=== PATIENT | male | born 1955 | race Caucasian/White ===

== ENCOUNTER 2018-06-07 15:49 | Inpatient (IN) | payer MEDICAID ==
[~2018-06-07] VITALS: Ht 167.6 cm; Wt 53.1 kg
[2018-06-07 15:51] VITALS: BP 142/75
--- NOTE | 2018-06-07 16:05 | NUR ---
PATIENT PRESENTS TO ED WITH PT ADMITS HE WAS DIAGNOSED LAST YR WITH MENINGITIS TODAYS SYMPTOMS ARE SIMILAR TO HIS FROM LAST YEAR ---PHOTOPHOBIA, FRONTAL LOBE SEVERE HEADACHE---- DENIES N/VD, DENIES RECENT INJURY, PAIN TO BASE OF HEAD IF HEAD TILT BACK MD NOTIFIED---MASK REMAINS ON PT SKIN IS PINK/WARM/DRY; AAOX4 WITH EVEN AND STEADY GAIT; LUNGS CLEAR BL; HR EVEN AND REGULAR; PT DENIES ANY FEVER, CP, SOB, OR COUGH AT THIS TIME; PATIENT STATES PAIN OF 10/10 AT THIS TIME; VSS; PATIENT POSITIONED FOR COMFORT; HOB ELEVATED; BEDRAILS UP X2; BED DOWN. ER MD MADE AWARE OF PT STATUS.
[2018-06-07] MEDS ORDERED: KETOROLAC 30 MG/ML VIAL IVP ONE (16:10)
[2018-06-07] MEDS ORDERED: LORazepam 2 MG/ML VIAL IVP ONE (16:10)
[2018-06-07] MEDS ORDERED: LIDOCAINE/EPI 1% 1:100000 20 ML VIAL INJ ONE (16:10)
[2018-06-07] MEDS ORDERED: NACL 0.9% 1,000 ML IV ONE (16:10)
--- NOTE | 2018-06-07 16:15 | NUR ---
EILEEN SET UP BY KYLE RTAORE
[2018-06-07 16:38] LABS: BASOPHILS % (AUTO) 0.6 % (0.0-2.0); HEMATOCRIT 45.1 % (36-52); HEMOGLOBIN 15.4 g/dL (12.0-18.0); LYMPHOCYTES # (AUTO) 0.4 K/uL (2.0-11.5); MEAN CORPUSCULAR HEMOGLOBIN 30 pg (27-31); MEAN CORPUSCULAR HGB CONC 34 g/dL (33-37); MEAN CORPUSCULAR VOLUME 87.5 fL (80-94); MONOCYTES # (AUTO) 0.3 K/uL (0.8-1.0); MONOCYTES % (AUTO) 6.3 % (1.7-9.3); NEUTROPHILS # (AUTO) 3.3 K/uL (1.8-7.7); NEUTROPHILS % (AUTO) 83.1 % (42.2-75.2); PLATELET COUNT (AUTO) 206 K/uL (140-450); RED BLOOD CELL COUNT(AUTO) 5.15 MIL/uL (4.20-6.10); RED CELL DISTRIBUTION WIDTH 13.6 % (11.6-13.7)
--- NOTE | 2018-06-07 16:42 | NUR ---
pt taken to xray
--- NOTE | 2018-06-07 16:42 | NUR ---
epi left at bedside for
--- NOTE | 2018-06-07 16:51 | NUR ---
PT RETURNED FROM X RAY
[2018-06-07 17:01] LABS: APPEARANCE,URINE CLEAR (CLEAR); BILIRUBIN,URINE NEGATIVE (NEGATIVE); BLOOD, URINE TRACE-I (NEGATIVE); COLOR,URINE YELLOW (YELLOW); LEUKOCYTE ESTERASE ,URINE NEGATIVE (NEGATIVE); NITRITE, URINE NEGATIVE (NEGATIVE); UGLUCOSE 3+ (NEGATIVE)
[2018-06-07 17:05] LABS: ALBUMIN 3.6 g/dL (3.4-5.0); ANION GAP 11.2 (8-16); CARBON DIOXIDE 27.8 mmol/L (21-32); TOTAL BILIRUBIN 0.5 mg/dL (0.0-1.0)
--- NOTE | 2018-06-07 17:30 | NUR ---
Dr. Miranda, Dr. Lennon and RN at bedside for lumbar puncture.
[2018-06-07 17:38] LABS: BARBITURATE, URINE NEG. ng/ml (NEG <=200); BENZODIAZEPINE, URINE NEG. ng/mL (NEG <=200); CANNABINOID, URINE NEG. ng/mL (NEG <=50); COCAINE, URINE NEG. ng/mL (NEG <=300); OPIATE, URINE NEG. ng/mL (NEG <=2000); PHENCYCLIDINE SCREEN,URINE NEG. ng/mL (NEG <=25)
[2018-06-07 17:44] LABS: PROTHROMBIN TIME 10.1 secs (10.8-13.4)
--- NOTE | 2018-06-07 18:51 | NUR ---
AMARILIS [phone] FOR PT RIDE
--- NOTE | 2018-06-07 18:51 | NUR ---
PT SLEEPING IN BED, VSS AT THIS TIME
[2018-06-07 18:57] LABS: CSF GLUCOSE 117 mg/dL (40-70)
[2018-06-07 19:09] LABS: CSF PROTEIN 73.1 mg/dL (15-45)
[2018-06-07] MEDS ORDERED: VANCOMYCIN 1,000 MG in DEXTROSE 5% 250 ML IV ONE (19:15)
--- NOTE | 2018-06-07 19:17 | NUR ---
CSF CULTURE AND GRAM STAIN SENT TO [facility]
--- NOTE | 2018-06-07 19:18 | NUR ---
CSF CULTURE AND GRAM STAIN SENT TO [facility]
--- NOTE | 2018-06-07 19:18 | NUR ---
REPORT GIVEN TO HAL FOLEY
[2018-06-07] MEDS ORDERED: HYDROcodone/APAP 5/325 MG 1 TAB TAB PO PRN (19:20)
[2018-06-07] MEDS ORDERED: LORazepam 2 MG/ML VIAL IM/IVP PRN (19:20)
[2018-06-07] MEDS ORDERED: ACETAMINOPHEN 325 MG TAB PO PRN (19:20)
[2018-06-07] MEDS ORDERED: DOCUSATE SODIUM 100 MG GELCAP PO PRN (19:20)
[2018-06-07] MEDS ORDERED: ONDANSETRON 4 MG/2 ML VIAL IM/IVP PRN (19:20)
[2018-06-07] MEDS ORDERED: ZOLPIDEM 5 MG TAB PO PRN (19:20)
[2018-06-07] MEDS ORDERED: cefTRIAXone 1,000 MG VIAL ONE (19:31)
[2018-06-07 20:04] LABS: CHOL/HDL RATIO 2.1 (1-4.5); FREE T4 (FREE THYROXINE) 1.08 ng/dL (0.76-1.46); MAGNESIUM 1.9 mg/dL (1.8-2.4); PHOSPHORUS 2.6 mg/dL (2.5-4.9); THYROID STIMULATING HORMONE 0.29 uIU/mL (0.34-3.74)
[2018-06-07] MEDS ORDERED: VANCOMYCIN 1,000 MG VIAL ONE (20:04)
--- NOTE | 2018-06-07 20:10 | NUR ---
PT ARRIVED AT UNIT VIA GURNEY, PT ABLE TO AMBULATE TO BED, TOLERATED WELL, NO DISTRESS NOTED, REPORT RECEIVED FROM ED NURSE MARQUEZ RN, PT STABLE, IV TO R AC 20G PATENT, INTACT, INFUSING ROCEPHIN AT THIS MOMENT @ 100ML/HR, PT ON ROOM AIR, NO SOB, V/S TAKEN, WNL, MRSA SWAB TAKEN, CALL LIGHT WITHIN REACH, WILL CONTINUE TO MONITOR.
--- NOTE | 2018-06-07 20:10 | NUR ---
Patient will be admitted to care of Dr. Rebollar. Admited to Tele. Patient went to room 113, via gurney by RN and Walter, EMT. Belongings list completed. Report to OG Reyes; Rochepin still infusing at time of transfer, RN aware Vancomycin ED order is still pending and is to be administered after Rocehpin is complete.
[2018-06-07 21:00] VITALS: BP 136/81
[2018-06-07] MEDS: NACL 0.9% 1,000 ML IV SCH (21:00)
[2018-06-07] MEDS: MORPHINE SULFATE 4 MG/ML SYR IVP PRN (21:01)
--- NOTE | 2018-06-07 21:01 | NUR ---
PT C/O PAIN, HEADACHE, AND PAIN TO THE FOOT, PAIN MEDICATION ADMINISTERED, PT TOLERATED WELL, ATTEMPT TO ASK ADMISSION QUESTIONS, PT WOULD NOT ANSWER. PT SLEEPING, NO DISTRESS NOTED, CALL LIGHT WITHIN REACH, WILL CONTINUE TO MONITOR.
--- NOTE | 2018-06-07 21:10 | NUR ---
PT IV INFILTRATED, NEW IV INSERTED TO L WRIST 20G PATENT, INTACT, PT TOLERATED WELL, IV TO L AC 20G TAKEN OUT, CATH INTACT.
--- NOTE | 2018-06-07 21:45 | NUR ---
CALLED DAUGHTER AT [phone] WENT DIRECTLY TO VOICEMIIL.
[2018-06-08] VITALS (7 sets, daily range): BP systolic 96–135; BP diastolic 53–70
--- NOTE | 2018-06-08 00:10 | NUR ---
CHECKED ON PT, PT SLEEPING, V/S TAKEN, WITHIN PT BASELINE, CALL LIGHT WITHIN REACH, WILL CONTINUE TO MONITOR.
[2018-06-08] MEDS ORDERED: DEXTROSE 50% 50 ML SYR IVP PRN (01:05)
[2018-06-08] MEDS ORDERED: BISACODYL 5 MG TABEC PO PRN (01:05)
[2018-06-08] MEDS ORDERED: VANCOMYCIN PER PHARMACY MC PRN (01:15)
[2018-06-08] MEDS: methylPREDNISolone SS 125 MG/2 ML VIAL IVP SCH (02:54)
[2018-06-08] MEDS: MORPHINE SULFATE 4 MG/ML SYR IVP PRN ×2 (02:58→08:30)
--- NOTE | 2018-06-08 02:58 | NUR ---
DUE MEDICATION ADMINISTERED, PT TOLERATED WELL, NO DISTRESS NOTED, CALL LIGHT WITHIN REACH, WILL CONTINUE TO MONITOR.
--- NOTE | 2018-06-08 03:53 | NUR ---
CHECKED ON PT, PT SLEEPING, NO DISTRESS NOTED, V/S TAKEN, WNL, CALL LIGHT WITHIN REACH, WILL CONTINUE TO MONITOR.
[2018-06-08] MEDS: INSULIN LISPRO SLIDING SCALE 100 UNITS/ML VIAL SUBQ PRN ×4 (06:12→22:03)
[2018-06-08] MEDS: BLOOD GLUCOSE MONITORING 1 DEV DEV FS SCH ×4 (06:12→21:00)
--- NOTE | 2018-06-08 07:27 | NUR ---
ENDORSED PT TO DAY SHIFT NURSE PAVAN RN, PT STABLE, NO DISTRESS NOTED, CALL LIGHT WITHIN REACH.
--- NOTE | 2018-06-08 07:45 | NUR ---
PATIENT WAS DROWSY, ABLE TO ANSWER QUESTIONS. RESPIRATION EVEN, UNLABOR ON ROOM AIR. SKIN DRY AND WARM. IV PATENT AND INTACT. COMPLAINED OF HEADACHE 8/, WILL MEDICATE PER ORDER. PLAN OF CARE WAS DISCUSSED WITH PATIENT. BED AT LOW POSITION, SIDE RAILS UP. CALL LIGHT WITHIN REACH
[2018-06-08] MEDS: NACL 0.9% 1,000 ML IV SCH ×2 (07:50→14:02)
[2018-06-08 07:56] LABS: BASOPHILS % (AUTO) 0.4 % (0.0-2.0); HEMATOCRIT 42.9 % (36-52); HEMOGLOBIN 14.7 g/dL (12.0-18.0); LYMPHOCYTES # (AUTO) 0.3 K/uL (2.0-11.5); LYMPHOCYTES % (AUTO) 6.6 % (20.5-51.1); MEAN CORPUSCULAR HEMOGLOBIN 30 pg (27-31); MEAN CORPUSCULAR HGB CONC 34 g/dL (33-37); MEAN CORPUSCULAR VOLUME 87.1 fL (80-94); MONOCYTES # (AUTO) 0.1 K/uL (0.8-1.0); MONOCYTES % (AUTO) 2.3 % (1.7-9.3); NEUTROPHILS # (AUTO) 3.7 K/uL (1.8-7.7); NEUTROPHILS % (AUTO) 90.7 % (42.2-75.2); PLATELET COUNT (AUTO) 186 K/uL (140-450); RED BLOOD CELL COUNT(AUTO) 4.93 MIL/uL (4.20-6.10); RED CELL DISTRIBUTION WIDTH 13.6 % (11.6-13.7); WHITE BLOOD COUNT (AUTO) 4.1 K/uL (4.8-10.8)
[2018-06-08] MEDS: LACTOBACILLUS RHAMNOSUS GG 1 EACH CAP PO SCH (08:30)
[2018-06-08] MEDS ORDERED: MORPHINE SULFATE 4 MG/ML SYR IVP PRN (08:40)
--- NOTE | 2018-06-08 08:40 | NUR ---
PATIENT HAS BEEN SCREENED AND CATEGORIZED MODERATE NUTRITION RISK. PATIENT WILL BE SEEN WITHIN 3-5 DAYS OF ADMISSION. 06/10/18KATHERINE [address]
[2018-06-08 08:41] LABS: PHOSPHORUS 2.7 mg/dL (2.5-4.9)
[2018-06-08 08:42] LABS: CARBON DIOXIDE 22.7 mmol/L (21-32); CREATININE 0.9 mg/dL (0.7-1.3); POTASSIUM 3.7 mmol/L (3.5-5.1)
[2018-06-08] MEDS ORDERED: VANCOMYCIN 1GM/DEXT 5% PREMIX 200 ML IV SCH (09:00)
[2018-06-08] MEDS ORDERED: APAP/BUTAL/CAFF 325/50/40 MG 1 TAB PO PRN (09:20)
--- NOTE | 2018-06-08 09:25 | NUR ---
PATIENT WAS DROWSY, COMPLAINED OF DIZZINESS AND CHEST PAIN. VS AND BS WAS TAKEN, STABLE AT THIS TIME. DR. ALBRECHT WAS AT BEDSIDE. PATIENT WAS ABLE TO BE AROUSED WITH SHAKING. WILL CONTINUE TO MONITOR
[2018-06-08] MEDS ORDERED: NITROGLYCERIN 0.4 MG TAB SL PRN (09:35)
--- NOTE | 2018-06-08 11:30 | NUR ---
PATIENT WAS SLEEPING COMFORTABLY. RESPIRATION EVEN, UNLABOR ON ROOM AIR. NO DISTRESS NOTED AT THIS TIME
[2018-06-08] MEDS: ACYCLOVIR IV SCH ×2 (12:08→22:04)
[2018-06-08] MEDS: NACL 0.9% IV SCH ×2 (12:08→22:04)
--- NOTE | 2018-06-08 13:49 | NUR ---
PATIENT WAS SLEEPING COMFORTABLY. RESPIRATION EVEN, UNLABOR ON ROOM AIR. NO DISTRESS NOTED AT THIS TIME
--- NOTE | 2018-06-08 16:00 | NUR ---
PATIENT WAS SLEEPING COMFORTABLY, EASILY AROUSABLE BY NAME. RESPIRATION EVEN, UNLABOR ON ROOM AIR. SKIN DRY AND WARM. DENIED PAIN. NO DISTRESS NOTED AT THIS TIME.
[2018-06-08] MEDS: metFORMIN 500 MG TAB PO SCH (17:20)
[2018-06-08] MEDS: KETOROLAC 30 MG/ML VIAL IVP PRN (17:20)
[2018-06-08] MEDS: PSYLLIUM 12.2 GM/PKT PO SCH (17:22)
--- NOTE | 2018-06-08 17:51 | NUR ---
PATIENT COMPLAINED OF SEVERE HEADACHE 11/26. MEDS WERE GIVEN PER ORDER
--- NOTE | 2018-06-08 18:46 | NUR ---
PATIENT WAS AWAKE, ALERT. RESPIRATION EVEN, UNLABOR ON ROOM AIR. IV PATENT AND INTACT. NO DISTRESS NOTED AT THIS TIME
--- NOTE | 2018-06-08 19:10 | NUR ---
RECEIVED REPORT FROM DAY SHIFT NURSE. PT SLEEPING. NO S/S OF RESP DISTRESS. NO S/S OF PAIN. ON ROOM AIR. SKIN INTACT. IV TO LEFT WRIST #20G, NS AT 70 ML/HR INFUSING WELL. SAFETY PRECAUTION IN PLACE. CALL LIGHT WITHIN REACH.
--- NOTE | 2018-06-08 19:23 | NUR ---
REPORT WAS GIVEN TO RESEARCH DIRECTOR RN. PATIENT WAS STABLE AT THIS TIME
--- NOTE | 2018-06-08 20:30 | NUR ---
Sagger Filler Notes: I attempted to met with Patient for a screen, patient was sleep and will not wake up or answer any question from these staff writer. I attempted to call Patient's Daughter Ana Maria Banks at . No response; unable to leave a [facility] due to full voicemail.
[2018-06-08] MEDS ORDERED: ATORVASTATIN 20 MG TAB PO SCH (21:00)
--- NOTE | 2018-06-08 21:30 | NUR ---
DR. ALEJANDRO CAME IN TO SEE PT. DENIES PAIN OR SOB AT THIS TIME.
[2018-06-09] VITALS: BP 120/63
--- NOTE | 2018-06-09 | NUR ---
PT SLEEPING BUT EASILY AROUSABLE. CHECKED V/S, WNL. NO S/S OF PAIN OR SOB.
[2018-06-09] MEDS: methylPREDNISolone SS 125 MG/2 ML VIAL IVP SCH (02:01)
--- NOTE | 2018-06-09 02:01 | NUR ---
DUE MEDS GIVEN. PT TOLERATED WELL.
[2018-06-09 04:00] VITALS: BP 116/59
--- NOTE | 2018-06-09 04:30 | NUR ---
PT SLEEPING. RESP EVEN AND UNLABORED. NO S/S OF PAIN. IVF INFUSING WELL.
[2018-06-09] MEDS: NACL 0.9% 1,000 ML IV SCH ×2 (04:51→20:46)
[2018-06-09] MEDS: NACL 0.9% IV SCH ×3 (05:03→20:46)
[2018-06-09] MEDS: ACYCLOVIR IV SCH ×3 (05:03→20:46)
[2018-06-09] MEDS: INSULIN LISPRO SLIDING SCALE 100 UNITS/ML VIAL SUBQ PRN ×3 (06:10→21:04)
[2018-06-09] MEDS: BLOOD GLUCOSE MONITORING 1 DEV DEV FS SCH ×4 (06:13→20:49)
--- NOTE | 2018-06-09 06:30 | NUR ---
BLOOD SUGAR CHECKED 251. HUMALOG 6 UNITS GIVEN SUBQ.
--- NOTE | 2018-06-09 07:22 | NUR ---
ENDORSED PT TO DAY SHIFT NURSE. PT IN STABLE CONDITION.
--- NOTE | 2018-06-09 07:23 | NUR ---
RECEIVED BEDSIDE REPORT FROM NIGHTSHIFT RN. PT ALERT AND ORIENTED X2. NO RESP DISTRESS. ON ROOM AIR. FALL RISK PRECAUTIONS IN PLACE. PT HAS MOMENTS OF CONFUSION, AMBULATES WITH ASSIST. URINAL AT BEDSIDE. DROPLET PRECAUTIONS FOR POSSIBLE MENINGITIS. SKIN INTACT. IV L WRIST 20 G INFUSING NS@70 CLEAN DRY INTACT. BED ALARM ON. BED IN LOWEST POSITION. CALL LIGHT WITHIN REACH. WILL CONTINUE TO MONITOR.
[2018-06-09 08:00] VITALS: BP 119/76
[2018-06-09 08:20] LABS: BASOPHILS % (AUTO) 0.2 % (0.0-2.0); HEMATOCRIT 40.9 % (36-52); HEMOGLOBIN 13.9 g/dL (12.0-18.0); LYMPHOCYTES # (AUTO) 0.6 K/uL (2.0-11.5); LYMPHOCYTES % (AUTO) 10.8 % (20.5-51.1); MEAN CORPUSCULAR HEMOGLOBIN 30 pg (27-31); MEAN CORPUSCULAR HGB CONC 34 g/dL (33-37); MEAN CORPUSCULAR VOLUME 87.7 fL (80-94); MONOCYTES # (AUTO) 0.1 K/uL (0.8-1.0); MONOCYTES % (AUTO) 2.1 % (1.7-9.3); NEUTROPHILS # (AUTO) 5.1 K/uL (1.8-7.7); NEUTROPHILS % (AUTO) 86.9 % (42.2-75.2); PLATELET COUNT (AUTO) 186 K/uL (140-450); RED BLOOD CELL COUNT(AUTO) 4.66 MIL/uL (4.20-6.10); RED CELL DISTRIBUTION WIDTH 13.5 % (11.6-13.7); WHITE BLOOD COUNT (AUTO) 5.9 K/uL (4.8-10.8)
[2018-06-09 08:57] LABS: ANION GAP 12.8 (8-16); CREATININE 0.9 mg/dL (0.7-1.3); POTASSIUM 3.8 mmol/L (3.5-5.1)
[2018-06-09] MEDS ORDERED: ASPIRIN 81 MG TAB.CHEW PO SCH (09:00)
[2018-06-09] MEDS ORDERED: LISINOPRIL 5 MG TAB PO SCH (09:00)
[2018-06-09] MEDS: KETOROLAC 30 MG/ML VIAL IVP PRN (09:11)
[2018-06-09] MEDS: PSYLLIUM 12.2 GM/PKT PO SCH ×3 (09:11→17:10)
--- NOTE | 2018-06-09 09:11 | NUR ---
ADMINISTERED PAIN MED. TOLERATED WELL. PT EDUCATED ON SIDE EFFECTS. VERBALIZED UNDERSTANDING. NO COMPLAINTS AT THIS TIME. WILL CONTINUE TO MONITOR. CALL LIGHT WITHIN REACH.
[2018-06-09] MEDS: LACTOBACILLUS RHAMNOSUS GG 1 EACH CAP PO SCH (09:12)
[2018-06-09] MEDS: metFORMIN 500 MG TAB PO SCH (09:12)
[2018-06-09 10:00] LABS: MAGNESIUM 2.3 mg/dL (1.8-2.4); PHOSPHORUS 2.7 mg/dL (2.5-4.9)
[2018-06-09] MEDS ORDERED: LIDOCAINE 2% 1000 MG/50 ML VIAL INJ SCH (11:00)
--- NOTE | 2018-06-09 11:00 | NUR ---
PT IN XRAY DOING LUMBAR PUNCTURE. IF ATIVAN NEEDED FOR WITHDRAWL, NURSE GRIFFITH WILL ADMINISTER.
[2018-06-09] MEDS ORDERED: LIDOCAINE MPF 2% 100 MG/5 ML VIAL INJ ONE (11:20)
--- NOTE | 2018-06-09 11:25 | NUR ---
PATIENT BACK ON TELE FLOOR IN STABLE CONDITION FROM XRAY AFTER LUMBAR PUNCTURE
[2018-06-09 12:00] VITALS: BP 139/79
--- NOTE | 2018-06-09 13:00 | NUR ---
PT SITTING IN BEDSIDE CHAIR WHILE LINENS ON BED CHANGED. NO SIGNS OF DISTRESS. CALL LIGHT WITHIN REACH. WILL CONTINUE TO MONITOR. PT BACK IN BED IN STABLE CONDITION.
--- NOTE | 2018-06-09 15:00 | NUR ---
PT LAYING IN BED SLEEPING. EASILY AROUSABLE. NO SIGNS OF DISTRESS. CALL LIGHT WITHIN REACH. WILL CONTINUE TO MONITOR.
[2018-06-09 16:00] VITALS: BP 123/68
--- NOTE | 2018-06-09 16:59 | NUR ---
PT LAYING IN BED COMFORTABLY. NO SIGNS OF DISTRESS. ALERT AND ORIENTED. BED IN LOWEST POSITION, CALL LIGHT WITHIN REACH. WILL CONTINUE TO MONITOR.
[2018-06-09] MEDS: metFORMIN 850 MG TAB PO SCH (17:10)
--- NOTE | 2018-06-09 17:12 | NUR ---
ADMINISTERED MEDS TO PT. PT TOLERATED WELL. EDUCATED ON SIDE EFFECTS. PT VERBALIZED UNDERSTANDING. BED IN LOWEST POSITION, CALL LIGHT WITHIN REACH. WILL CONTINUE TO MONITOR.
--- NOTE | 2018-06-09 17:25 | NUR ---
TELE MONITOR REMOVED. PATIENT TRANSFERRED MED SURGE PATIENT
--- NOTE | 2018-06-09 19:05 | NUR ---
GAVE BEDSIDE REPORT TO NIGHTSHIFT OG MULTANI. PT IN STABLE CONDITION.
--- NOTE | 2018-06-09 19:10 | NUR ---
Received endorsement from AM shift RN; patient is A/Ox3, able to make needs known, ambulatory. Introduced self, updated board. No SOB or distress noted, on room air. On droplet precautions; observed and maintained. IV site on left upper arm, 20 gauge, infusing IVF at 70mL/hr. Skin intact. Bed in the lowest position, call light within reach. Initial assessment done. Will continue to monitor.
[2018-06-09 20:00] VITALS: BP 133/71
--- NOTE | 2018-06-09 20:50 | NUR ---
Due meds given, vitals taken. Patient watching TV, no distress noted.
--- NOTE | 2018-06-09 23:40 | NUR ---
Vitals taken, no SOB or distress noted. Patient stated he was restless; administered PRN Ambien. Will continue to monitor.
[2018-06-10] VITALS: BP 134/70
--- NOTE | 2018-06-10 01:56 | NUR ---
Checks made, no distress noted.
--- NOTE | 2018-06-10 02:50 | NUR ---
Rounds done, no distress noted. Patient asleep on left lateral side.
--- NOTE | 2018-06-10 04:00 | NUR ---
Frequent checks made. Patient asleep, visible chest rise and fall noted.
[2018-06-10] MEDS: NACL 0.9% IV SCH ×3 (05:56→21:33)
[2018-06-10] MEDS: ACYCLOVIR IV SCH ×3 (05:56→21:33)
[2018-06-10] MEDS: BLOOD GLUCOSE MONITORING 1 DEV DEV FS SCH ×4 (06:57→21:37)
--- NOTE | 2018-06-10 07:05 | NUR ---
ENDORSED PT TO PM NURSE AT BEDSIDE. PT FAMILY AT THE BEDSIDE. PT IN STABLE CONDITION. Addendum: 06/10/18 at 1913 by Maninder Barrera RN TIME 1904. WRONG TIME CHARTED.
--- NOTE | 2018-06-10 07:15 | NUR ---
Endorsed patient to AM shift RN for continuity of care. Patient in stable condition.
--- NOTE | 2018-06-10 07:20 | NUR ---
RECEIVED HANDOFF REPORT. PT IS AWAKE IN BED PT IS STABLE AND APPEARS IN NO APPARENT DISTRESS. ALL SAFETY MEASURES ARE IN PLACE. WILL CONTINUE TO MONITOR.
[2018-06-10 07:44] LABS: BASOPHILS % (AUTO) 0.7 % (0.0-2.0); EOSINOPHILS # (AUTO) 0.1 K/uL (0-0.4); EOSINOPHILS % (AUTO) 1.2 % (0.0-4.0); HEMATOCRIT 38.2 % (36-52); LYMPHOCYTES # (AUTO) 1.5 K/uL (2.0-11.5); LYMPHOCYTES % (AUTO) 29.3 % (20.5-51.1); MEAN CORPUSCULAR HEMOGLOBIN 30 pg (27-31); MEAN CORPUSCULAR HGB CONC 34 g/dL (33-37); MEAN CORPUSCULAR VOLUME 87.9 fL (80-94); MONOCYTES # (AUTO) 0.5 K/uL (0.8-1.0); MONOCYTES % (AUTO) 9.5 % (1.7-9.3); NEUTROPHILS # (AUTO) 3.1 K/uL (1.8-7.7); NEUTROPHILS % (AUTO) 59.3 % (42.2-75.2); PLATELET COUNT (AUTO) 202 K/uL (140-450); RED BLOOD CELL COUNT(AUTO) 4.35 MIL/uL (4.20-6.10); RED CELL DISTRIBUTION WIDTH 13.6 % (11.6-13.7); WHITE BLOOD COUNT (AUTO) 5.3 K/uL (4.8-10.8)
[2018-06-10 08:13] LABS: CARBON DIOXIDE 25.5 mmol/L (21-32); CREATININE 0.9 mg/dL (0.7-1.3); POTASSIUM 3.5 mmol/L (3.5-5.1)
[2018-06-10] MEDS: metFORMIN 850 MG TAB PO SCH ×2 (08:45→16:47)
[2018-06-10] MEDS: LACTOBACILLUS RHAMNOSUS GG 1 EACH CAP PO SCH (08:46)
[2018-06-10] MEDS: PSYLLIUM 12.2 GM/PKT PO SCH ×3 (08:46→16:49)
[2018-06-10 08:53] LABS: PHOSPHORUS 3.2 mg/dL (2.5-4.9)
[2018-06-10] MEDS: NACL 0.9% 1,000 ML IV SCH ×2 (08:56→22:49)
--- NOTE | 2018-06-10 09:30 | NUR ---
PT IS AWAKE IN BED. ASSISTED PT WITH PHONE TO CONTACT HIS MOTHER. PT IS STABLE AND IN NO APPARENT DISTRESS. ALL SAFETY MEASURES ARE IN PLACE.
--- NOTE | 2018-06-10 11:30 | NUR ---
FINGERSTICK BLOOD GLUCOSE 147 NO COVERAGE NEEDED. PT IS STABLE AND IN NO APPARENT DISTRESS. PT IS EATING HIS LUNCH. ALL SAFETY MEASURES ARE IN PLACE.
--- NOTE | 2018-06-10 13:00 | NUR ---
PT IS STABLE AND ASLEEP IN BED. NO SIGNS OF DISTRESS. NOTABLE CHEST RISE AND FALL. PT APPEARS STABLE AND IN NO APPARENT DISTRESS. WILL CONTINUE TO MONITOR. ALL SAFETY MEASURES ARE IN PLACE.
--- NOTE | 2018-06-10 14:30 | NUR ---
ENDORSED PT TO SITAL FOR CONTINUITY OF CARE. PT IS STABLE AWAKE AND IN NO APPARENT DISTRESS. ALL SAFETY MEASURES ARE IN PLACE.
--- NOTE | 2018-06-10 14:31 | NUR ---
RECEIVED REPORT FROM OG MOSELEY. PT ON O2 4LPN, O2 SAT 98%. PT APPEARS SLIGHTLY ANXIOUS, ASKING WHEN HE IS GOING TO KNOW ABOUT HIS ILLNESS. EXPLAINED HI THAT WILL UPDATE ONCE THE TEST RESULTS CARRIED OUT COMES BACK. ADVISED HIM TO REST COMFORTABLY. PLACED CALL LIGHT WITHIN REACH. INFORMED TO USE CALL LIGHT FOR ANY HELP. WILL CONTINUE TO MONITOR PT. VS RECORDED BP 126/72, HR 57, T 98.5.
--- NOTE | 2018-06-10 15:30 | NUR ---
CHECKED ON THE PT. ASSISTED WITH URINAL. 600 OUTPUT. NO SIGN IF DISTRESS NOTED. CALL LIGHT WITHIN PTS REACH. WILL CONTINUE TO MONITOR PT.
[2018-06-10 16:00] VITALS: BP 124/68
--- NOTE | 2018-06-10 16:30 | NUR ---
PER RN PRADIP, LAB CALLED AND STATED THAT CSF SAMPLE OLD TO CARRY OUT NEW LAB ORDER. WENT TO NOTIFY RESIDENT IN ROOM, NOT PRESENT. WILL INFORM AGAIN ONCE THEY ARE BACK. CHARGE NURSE NOTIFIED.
--- NOTE | 2018-06-10 17:05 | NUR ---
ENDORSED PT TO PM NURSE AT BEDSIDE. PT WITH FAMILY MEMBER. STABLE. Addendum: 06/10/18 at 1916 by Maninder Barrera RN WRONG TIME CHARTED
--- NOTE | 2018-06-10 17:25 | NUR ---
CHECKED ON THE PT.SITTING ON HIS BED COMFORTABLY, FAMILY AT THE BEDSIDE. INFORMED PT THAT HIS CONCERN HAS BEEN FORWARDED TO RESIDENT. STATES WILL CHECK ON THE PT. INFORMED PT ABOUT THE LAB CALLING REGARDING CSF SAMPLE ORDER. DR. VILLAREAL INFORMED. CALL LIGHT WITHIN PTS REACH. WILL CONTINUE TO MONITOR PT.
--- NOTE | 2018-06-10 19:05 | NUR ---
ENDORSED PT TO PM NURSE AT BEDSIDE. PT STABLE, FAMILY AT THE BEDSIDE.
--- NOTE | 2018-06-10 19:06 | NUR ---
Received endorsement from AM shift RN; patient is A/Ox3, able to make needs known, ambulatory with assist. Patient is sitting up in bed, watching TV with female visitor. Introduced self, updated board. NO SOB or distress noted, on room air. IV site on left upper arm, 20 gauge, intact with IVF running at 70mL/hr. Skin intact. Bed in the lowest position, call light within reach. Initial assessment done. Will continue to monitor.
--- NOTE | 2018-06-10 21:45 | NUR ---
Due meds given, patient is watching TV. No distress noted.
--- NOTE | 2018-06-10 23:50 | NUR ---
Vitals taken, patient asleep. Visible chest rise and fall noted.
[2018-06-11] VITALS: BP 133/69
--- NOTE | 2018-06-11 01:53 | NUR ---
Checks made, no distress noted. Patient sleeping, visible chest rise and fall noted.
--- NOTE | 2018-06-11 04:00 | NUR ---
Rounds done, patient asleep, visible chest rise and fall noted.
[2018-06-11] MEDS: NACL 0.9% IV SCH ×2 (04:44→13:17)
[2018-06-11] MEDS: ACYCLOVIR IV SCH ×2 (04:44→13:17)
[2018-06-11] MEDS: BLOOD GLUCOSE MONITORING 1 DEV DEV FS SCH ×2 (06:54→11:43)
--- NOTE | 2018-06-11 07:15 | NUR ---
Endorsed patient to AM shift RN for continuity of care; patient in stable condition.
--- NOTE | 2018-06-11 07:40 | NUR ---
PATIENT WAS AWAKE, ALERT. RESPIRATION EVEN, UNLABOR ON ROOM AIR. SKIN DRY AND WARM. IV PATENT AND INTACT. DENIED PAIN AT THIS TIME. PLAN OF CARE WAS DISCUSSED WITH PATIENT. BED AT LOW POSITION, SIDE RAILS UP. CALL LIGHT WITHIN REACH.
[2018-06-11 08:00] VITALS: BP 131/64
[2018-06-11 08:10] LABS: BASOPHILS % (AUTO) 0.8 % (0.0-2.0); EOSINOPHILS # (AUTO) 0.1 K/uL (0-0.4); EOSINOPHILS % (AUTO) 1.9 % (0.0-4.0); HEMATOCRIT 39.7 % (36-52); HEMOGLOBIN 13.7 g/dL (12.0-18.0); LYMPHOCYTES # (AUTO) 1.8 K/uL (2.0-11.5); MEAN CORPUSCULAR HEMOGLOBIN 30 pg (27-31); MEAN CORPUSCULAR HGB CONC 35 g/dL (33-37); MEAN CORPUSCULAR VOLUME 87.1 fL (80-94); MONOCYTES # (AUTO) 0.5 K/uL (0.8-1.0); MONOCYTES % (AUTO) 10.4 % (1.7-9.3); NEUTROPHILS # (AUTO) 2.4 K/uL (1.8-7.7); NEUTROPHILS % (AUTO) 48.9 % (42.2-75.2); PLATELET COUNT (AUTO) 223 K/uL (140-450); RED BLOOD CELL COUNT(AUTO) 4.56 MIL/uL (4.20-6.10); RED CELL DISTRIBUTION WIDTH 13.7 % (11.6-13.7); WHITE BLOOD COUNT (AUTO) 4.9 K/uL (4.8-10.8)
[2018-06-11 08:29] LABS: MAGNESIUM 2.1 mg/dL (1.8-2.4); PHOSPHORUS 3.5 mg/dL (2.5-4.9)
[2018-06-11] MEDS: PSYLLIUM 12.2 GM/PKT PO SCH ×2 (08:38→12:28)
[2018-06-11] MEDS: LACTOBACILLUS RHAMNOSUS GG 1 EACH CAP PO SCH (08:38)
[2018-06-11] MEDS: metFORMIN 850 MG TAB PO SCH (08:38)
[2018-06-11 08:42] LABS: ANION GAP 10.5 (8-16); CARBON DIOXIDE 28.4 mmol/L (21-32); CREATININE 0.8 mg/dL (0.7-1.3); POTASSIUM 3.9 mmol/L (3.5-5.1)
--- NOTE | 2018-06-11 10:30 | NUR ---
PATIENT WAS SLEEPING COMFORTABLY. RESPIRATION EVEN, UNLABOR ON ROOM AIR. NO DISTRESS NOTED AT THIS TIME
[2018-06-11] MEDS ORDERED: GLUC-805 FS (11:12)
[2018-06-11] MEDS ORDERED: DOCU-299 PO (11:12)
[2018-06-11] MEDS ORDERED: METPCK PO (11:12)
[2018-06-11] MEDS ORDERED: HUMSLIDE SUBQ (11:12)
[2018-06-11] MEDS ORDERED: METF850T PO (11:12)
[2018-06-11] MEDS ORDERED: FIO PO (11:12)
--- NOTE | 2018-06-11 12:24 | NUR ---
PATIENT WAS AWAKE, ALERT. RESPIRATION EVEN, UNLABOR ON ROOM AIR. DENIED PAIN AT THIS TIME. NO DISTRESS NOTED. CALL LIGHT WITHIN REACH. FAMILY WAS AT BEDSIDE
[2018-06-11] MEDS: INSULIN LISPRO SLIDING SCALE 100 UNITS/ML VIAL SUBQ PRN (12:31)
[2018-06-11] MEDS ORDERED: GABA300C PO (13:04)
[2018-06-11] MEDS ORDERED: LISI5TAB18 PO (13:05)
--- NOTE | 2018-06-11 14:00 | NUR ---
PATIENT WAS SLEEPING COMFORTABLY. RESPIRATION EVEN, UNLABOR ON ROOM AIR. NO DISTRESS NOTED AT THIS TIME
--- NOTE | 2018-06-11 15:28 | NUR ---
DISCHARGE INSTRUCTION AND PRESCRIPTIONS WERE GIVEN AND EXPLAINED TO PATIENT. SLIDING SCALE INSTRUCTION WAS EXPLAINED. PATIENT VERBALIZED UNDERSTANDING. IV WAS REMOVED, CATHETER INTACT, NO ACTIVE BLEEDING SEEN. DRUG REHAB RESOURCE WAS PROVIDED TO PATIENT.
--- NOTE | 2018-06-11 16:01 | NUR ---
ALL BELONGINGS WERE TAKEN WITH THE PATIENT. PATIENT WAS ESCORTED OUT BY STAFF, STEADY GAIT. PATIENT IS STABLE AT THIS TIME
== END 2018-06-11 16:00 | disposition home or self-care (01) | DRG 54 ==
LOC: MED 15:49 → MTU 19:23
PROVIDERS: ADMIT General Practice; ATTEND General Practice
PROC: 009U3ZX Drainage of Spinal Canal, Percutaneous Approach, Diagnostic (ICD-10-PCS; principal; 2018-06-09)
PROC: B01B1ZZ Fluoroscopy of Spinal Cord using Low Osmolar Contrast (ICD-10-PCS; 2018-06-09)
DX: R51 Headache (principal); E11.42 Type 2 diabetes mellitus with diabetic polyneuropathy; E87.1 Hypo-osmolality and hyponatremia; E11.65 Type 2 diabetes mellitus with hyperglycemia; E05.90 Thyrotoxicosis, unspecified without thyrotoxic crisis or storm; K59.00 Constipation, unspecified; E05.80 Other thyrotoxicosis without thyrotoxic crisis or storm; F15.19 Other stimulant abuse with unspecified stimulant-induced disorder; Z60.2 Problems related to living alone; Z86.61 Personal history of infections of the central nervous system
CPT/HCPCS: 36415; 62270; 70450; 71045; 73660; 77003; 80048; 80053; 80305; 81003; 82150; 82948; 83036; 83605; 83690; 83735; 83880; 84100; 84157; 84439; 84443; 84484; 84550; 85025; 85610; 85651; 85730; 86140; 86702; 86790; 87040; 87070; 87081; 87205; 87529; 87798; 93005; 96361; 96365; 96375; 99285; G0482; J0133; J0696; J1815; J1885; J2001; J2060; J2270; J2930; J3370; J7030; J7060; Q0092

== ENCOUNTER 2019-08-07 18:54 | Emergency (ER) | payer MEDICAID ==
[~2019-08-07] VITALS: Ht 175.3 cm; Wt 81.6 kg
[~2019-08-07 18:54] MED LIST: DOCU-299 PO; FIO PO; GABA300C PO; GLUC-805 FS; HUMSLIDE SUBQ; LISI5TAB18 PO; METF850T PO; METPCK PO
[2019-08-07 19:01] VITALS: BP 139/76
[2019-08-07] MEDS ORDERED: KETOROLAC 30 MG/ML VIAL IM ONE (19:20)
[2019-08-07 20:20] VITALS: BP 132/82
[2019-08-08] MEDS ORDERED: GLIP5TER PO (16:50)
== END 2019-08-07 20:20 | disposition home or self-care (01) ==
LOC: MED 18:54
DX: S63.591A Other specified sprain of right wrist, initial encounter (principal); E11.9 Type 2 diabetes mellitus without complications; F15.10 Other stimulant abuse, uncomplicated; Z79.899 Other long term (current) drug therapy; W19.XXXA Unspecified fall, initial encounter; Y93.89 Activity, other specified; Y92.89 Other specified places as the place of occurrence of the external cause; Y99.8 Other external cause status
CPT/HCPCS: 73110; 96372; 99283; J1885; Q0092

== ENCOUNTER 2019-08-08 14:29 | Inpatient (IN) | payer MEDICAID ==
[~2019-08-08] VITALS: Ht 175.3 cm; Wt 84.8 kg
[2019-08-08] MEDS: CLINDAMYCIN 600 MG in DEXTROSE 5% 50 ML IV SCH (00:59)
[2019-08-08 15:29] VITALS: BP 165/83
--- NOTE | 2019-08-08 15:39 | NUR ---
OKAYED TO KEEP ACUITY 4 CONSIDERING BS 435 PT ASYMPTOMATIC ; ONLY C/O RIGHT WRIST PAIN X YESTERDAY ADMITS DID NOT TAKE MED TODAY
--- NOTE | 2019-08-08 15:44 | NUR ---
64 Y/O MALE FROM HOME C/O RT HAND/WRIST PAIN THAT STARTED THIS MORNING. PT STATES HE FELL ON ARM 2 DAYS AGO AND SWELLING, REDNESS, AND PAIN STARTED THIS MORNING. NOTICABLE SWELLING WITH REDNESS AT THIS TIME. WARM TO THE TOUCH. +CMS, + PULSES. RR EVEN AND UNLABORED, AWAKE AND ALERT. PT GUARDING RT ARM. 10/10 PAIN. POSITIONED FOR COMFORT. VSS MEDHX: SARAH ALLERIGES: JENNIFER
[2019-08-08] MEDS ORDERED: KETOROLAC 60 MG/2 ML VIAL IM ONE (16:00)
[2019-08-08] MEDS ORDERED: NACL 0.9% 1,000 ML IV SCH ×2 (16:04→20:03)
--- NOTE | 2019-08-08 16:18 | NUR ---
18G IV PLACED TO LT AC, BLOOD AND CULTURES DRAWN AT THIS TIME
[2019-08-08 16:40] LABS: BASOPHILS # (AUTO) 0.1 K/uL (0.00-0.22); BASOPHILS % (AUTO) 0.5 % (0.0-2.0); EOSINOPHILS % (AUTO) 0.1 % (0.0-4.0); HEMATOCRIT 39.5 % (36-52); HEMOGLOBIN 12.9 g/dL (12.0-18.0); LYMPHOCYTES # (AUTO) 1.1 K/uL (2.0-11.5); LYMPHOCYTES % (AUTO) 8.4 % (20.5-51.1); MEAN CORPUSCULAR HEMOGLOBIN 30 pg (27-31); MEAN CORPUSCULAR HGB CONC 33 g/dL (33-37); MEAN CORPUSCULAR VOLUME 90.8 fL (80-94); MONOCYTES # (AUTO) 1.2 K/uL (0.8-1.0); MONOCYTES % (AUTO) 8.9 % (1.7-9.3); NEUTROPHILS # (AUTO) 10.8 K/uL (1.8-7.7); NEUTROPHILS % (AUTO) 82.1 % (42.2-75.2); PLATELET COUNT (AUTO) 212 K/uL (140-450); RED BLOOD CELL COUNT(AUTO) 4.36 MIL/uL (4.20-6.10); RED CELL DISTRIBUTION WIDTH 13.7 % (11.6-13.7); WHITE BLOOD COUNT (AUTO) 13.2 K/uL (4.8-10.8)
--- NOTE | 2019-08-08 16:48 | NUR ---
PT STATES NO DECREASE IN PAIN, OMAR TUCKER MADE AWARE.
[2019-08-08] MEDS ORDERED: ONDANSETRON 4 MG/2 ML VIAL IVP ONE (16:50)
[2019-08-08] MEDS ORDERED: GLIP5TER PO (16:50)
[2019-08-08] MEDS ORDERED: MORPHINE SULFATE 4 MG/ML SYR IVP ONE (16:50)
[2019-08-08 17:00] LABS: ALBUMIN 3.5 g/dL (3.4-5.0); ANION GAP 12.9 (8-16); CARBON DIOXIDE 25.4 mmol/L (21-32); CREATININE 1.1 mg/dL (0.6-1.3); POTASSIUM 4.3 mmol/L (3.5-5.1); TOTAL BILIRUBIN 0.7 mg/dL (0.0-1.0)
[2019-08-08] MEDS ORDERED: cefTRIAXone 1,000 MG VIAL ONE (17:21)
[2019-08-08 17:33] LABS: APPEARANCE,URINE CLEAR (CLEAR); BILIRUBIN,URINE NEGATIVE (NEGATIVE); BLOOD, URINE NEGATIVE (NEGATIVE); COLOR,URINE YELLOW (YELLOW); LEUKOCYTE ESTERASE ,URINE NEGATIVE (NEGATIVE); NITRITE, URINE NEGATIVE (NEGATIVE); UGLUCOSE 3+ (NEGATIVE)
--- NOTE | 2019-08-08 18:41 | NUR ---
RESTING IN BED WITH EYES CLOSED, AROUSABLE TO NAME. STATES DECREASE IN PAIN AFTER PAIN MEDICATION. VSS. WILL CONTINUE TO MONITOR
--- NOTE | 2019-08-08 19:01 | NUR ---
PT GAVE PERMISSION TO GIVE SISTER MEET INFORMATION ABOUT PT.
--- NOTE | 2019-08-08 19:08 | NUR ---
REPORT GIVEN TO OG FELIX. TRANSFER OF CARE AT THIS TIME
--- NOTE | 2019-08-08 19:09 | NUR ---
REPORT RECEIVED FROM OG ESTRADA FOR CONTINUATION OF CARE.
--- NOTE | 2019-08-08 19:11 | NUR ---
PT SLEEPING IN BED , LOCKED AND IN LOWEST POSITION, AROUSABLE BY VERBAL STIMULATION , HOB ELEVATED, SIDE RAIL X1.
--- NOTE | 2019-08-08 19:51 | NUR ---
Patient will be admitted to care of DR. RANDALL. Admited to TELEMETRY. Will go to room 112B. Belongings list completed. Report to OG COWAN.
[2019-08-08 19:55] VITALS: BP 131/80
[2019-08-08] MEDS ORDERED: DOCUSATE SODIUM 100 MG GELCAP PO PRN (20:05)
[2019-08-08] MEDS ORDERED: ACETAMINOPHEN 325 MG TAB PO PRN (20:05)
[2019-08-08] MEDS ORDERED: ONDANSETRON 4 MG/2 ML VIAL IM/IVP PRN (20:05)
[2019-08-08] MEDS ORDERED: KETOROLAC 15 MG/ML VIAL IVP PRN (20:05)
[2019-08-08] MEDS ORDERED: DEXTROSE 50% 50 ML SYR IVP PRN (20:05)
[2019-08-08] MEDS ORDERED: GLUCAGON 1 MG VIAL IVP PRN (20:05)
--- NOTE | 2019-08-08 20:20 | NUR ---
PT ARRIVED VIA GURNEY TO ROOM 112. PT AMBULATED TO B BED WITH STANDBY ASSIST. PT ON ROOM AIR. RESPIRATIONS EVEN AND UNLABORED. IV SITE LEFT AC 18 G SALINE LOCK. SKIN INTACT EXCEPT SWELLING ON RIGHT WRIST. VS T 98.6 P 80 R 16 BP 131/67 O2 97 ROOM AIR. REPORT GIVEN BY ISIDRO MOCK NURSE. PT PLACED ON FALL RISK PROTOCOL.
[2019-08-08 20:34] LABS: BARBITURATE, URINE NEGATIVE ng/ml (NEG <=200); BENZODIAZEPINE, URINE NEGATIVE ng/mL (NEG <=200); CANNABINOID, URINE NEGATIVE ng/mL (NEG <=50); COCAINE, URINE NEGATIVE ng/mL (NEG <=300); OPIATE, URINE POSITIVE ng/mL (NEG <=2000); PHENCYCLIDINE SCREEN,URINE NEGATIVE ng/mL (NEG <=25)
[2019-08-08 20:43] LABS: PROTHROMBIN TIME 10.4 secs (10.8-13.4)
[2019-08-08] MEDS: BLOOD GLUCOSE MONITORING 1 DEV DEV FS SCH (20:50)
[2019-08-08 20:52] LABS: AMYLASE 17 U/L (25-115); CHOL/HDL RATIO 2.1 (1-4.5); HDL CHOLESTEROL 64 mg/dL (40-60); LDL (CALC) 62 mg/dL (60-100); LIPASE 89 U/L (73-393); MAGNESIUM 1.9 mg/dL (1.8-2.4); PHOSPHORUS 2.8 mg/dL (2.5-4.9); TRIGLYCERIDES 45 mg/dL (30-150)
[2019-08-08 20:53] LABS: FREE T4 (FREE THYROXINE) 1.07 ng/dL (0.76-1.46); LACTATE DEHYDROGENASE 226 U/L (85-227)
[2019-08-08] MEDS: INSULIN LISPRO SLIDING SCALE 100 UNITS/ML VIAL SUBQ PRN (20:57)
[2019-08-08 21:04] LABS: THYROID STIMULATING HORMONE 0.45 uIU/mL (0.34-3.74)
[2019-08-08] MEDS: MORPHINE SULFATE 2 MG/ML SYR IVP PRN (21:07)
--- NOTE | 2019-08-08 21:10 | NUR ---
PT GIVEN MORPHINE FOR EXTREME PAIN IVP , PT RECEIVING CXR AT BEDSIDE.
--- NOTE | 2019-08-08 23:20 | NUR ---
MD VEGAS AT BEDSIDE, PT IN A LOT OF PAIN, TO LEFT WRIST MD VEGAS SAID OK TO GIVE NORCO AND TORADOL PRN FOR SEVERE PAIN.
[2019-08-08] MEDS: HYDROcodone/APAP 7.5/325 MG 1 TAB PO PRN (23:21)
--- NOTE | 2019-08-08 23:30 | NUR ---
REPORT GIVEN TO RALPH MARKETING SERVICES COORDINATOR NURSE AT BEDSIDE FOR CONTINUITY OF CARE, PT IN STABLE CONDITION.
--- NOTE | 2019-08-08 23:30 | NUR ---
RECEIVED PT IN STABLE CONDITION FROM AM NURSE FOR CONTINUITY OF CARE.
[2019-08-09] MEDS ORDERED: CLINDAMYCIN 600 MG/4 ML VIAL ONE ×2 (00:53→05:17)
--- NOTE | 2019-08-09 00:59 | NUR ---
CLEOCIN IVPB STARTED ON PT. WILL MONITOR FOR ANY REACTION.
[2019-08-09 01:03] VITALS: BP 137/72
[2019-08-09] MEDS: MORPHINE SULFATE 2 MG/ML SYR IVP PRN (02:47)
[2019-08-09 03:53] VITALS: BP 132/79
[2019-08-09] MEDS: HYDROcodone/APAP 7.5/325 MG 1 TAB PO PRN (04:36)
[2019-08-09] MEDS ORDERED: MORPHINE SULFATE 2 MG/ML SYR IVP ONE (04:40)
--- NOTE | 2019-08-09 04:40 | NUR ---
MORPHINE 2 MG IVP ONCE NOT GIVEN. PT ALREADY SLEEEPING AFTER THE NORCO . WILL CONTINUE TO MONITOR.
[2019-08-09] MEDS ORDERED: hydrALAZINE 20 MG/ML VIAL IVP PRN (04:45)
[2019-08-09] MEDS ORDERED: MORPHINE SULFATE 4 MG/ML SYR IVP PRN (05:05)
[2019-08-09] MEDS: CLINDAMYCIN 600 MG in DEXTROSE 5% 50 ML IV SCH (05:38)
--- NOTE | 2019-08-09 05:40 | NUR ---
BLOOD SUGAR WAS 229 INSULIN COVERAGE GIVEN SUBQ.
[2019-08-09] MEDS: BLOOD GLUCOSE MONITORING 1 DEV DEV FS SCH (05:44)
[2019-08-09] MEDS: INSULIN LISPRO SLIDING SCALE 100 UNITS/ML VIAL SUBQ PRN (05:54)
--- NOTE | 2019-08-09 07:00 | NUR ---
RECEIVED PT FROM DUST CONTROL ENGINEER NURSE RALPH-RN. PT RESTING IN BED, AOX4, ON ROOM AIR WITH LEFT AC #18G RUNNING NS @ 125ML/HR. CALL LIGHT WITHIN REACH. NO S/S OF RESPIRATORY DISTRESS OR DISCOMFORT NOTED AT THIS TIME. WILL CONTINUE TO MONITOR.
[2019-08-09 07:26] LABS: BASOPHILS # (AUTO) 0.1 K/uL (0.00-0.22); BASOPHILS % (AUTO) 0.4 % (0.0-2.0); EOSINOPHILS % (AUTO) 0.2 % (0.0-4.0); HEMATOCRIT 36.4 % (36-52); HEMOGLOBIN 12.3 g/dL (12.0-18.0); LYMPHOCYTES # (AUTO) 1.3 K/uL (2.0-11.5); LYMPHOCYTES % (AUTO) 7.4 % (20.5-51.1); MEAN CORPUSCULAR HEMOGLOBIN 31 pg (27-31); MEAN CORPUSCULAR HGB CONC 34 g/dL (33-37); MEAN CORPUSCULAR VOLUME 90.2 fL (80-94); MONOCYTES # (AUTO) 1.3 K/uL (0.8-1.0); NEUTROPHILS # (AUTO) 15.2 K/uL (1.8-7.7); PLATELET COUNT (AUTO) 201 K/uL (140-450); RED BLOOD CELL COUNT(AUTO) 4.03 MIL/uL (4.20-6.10); RED CELL DISTRIBUTION WIDTH 13.2 % (11.6-13.7); WHITE BLOOD COUNT (AUTO) 17.9 K/uL (4.8-10.8)
[2019-08-09 07:35] LABS: ANION GAP 14.8 (8-16); CARBON DIOXIDE 23.2 mmol/L (21-32); CREATININE 0.9 mg/dL (0.6-1.3)
[2019-08-09 07:39] LABS: MAGNESIUM 1.7 mg/dL (1.8-2.4); PHOSPHORUS 2.5 mg/dL (2.5-4.9)
[2019-08-09] MEDS ORDERED: MORPHINE SULFATE 2 MG/ML SYR IVP PRN (08:00)
[2019-08-09] MEDS ORDERED: metFORMIN 850 MG TAB PO SCH (08:00)
--- NOTE | 2019-08-09 08:06 | NUR ---
PT ELOPED- DISCOVERED BY MARICHUY MAZARIEGOS AND BINTA, AND EVS WORKER. LEFT UNIT VIA BACK DOOR. IV WAS REMOVED, FOUND ON THE FLOOR- CANNULA INTACT. REGISTRATION REP ALSO REMOVED AND LEFT ON BED. BICYCLE COURIER BARBARA GEORGE. CHARGE NURSE BRITT GEORGE. NO BELONGINGS LEFT IN ROOM.
--- NOTE | 2019-08-09 08:18 | NUR ---
DR. CHIANG AWARE OF PT ELOPE.
[2019-08-09] MEDS ORDERED: ENOXAPARIN 40 MG/0.4 ML SYR SUBQ SCH (09:00)
[2019-08-09] MEDS ORDERED: LACTOBACILLUS RHAMNOSUS GG 1 EACH CAP PO SCH (09:00)
[2019-08-09] MEDS ORDERED: NICOTINE TRANSD SYS 14 MG/24 HR PATCH TD SCH (09:00)
[2019-08-09] MEDS ORDERED: glipiZIDE ER 5 MG TABER PO SCH (09:00)
[2019-08-09] MEDS ORDERED: LISINOPRIL 10 MG TAB PO SCH (09:00)
--- NOTE | 2019-08-09 15:06 | NUR ---
Echocardiogram cancelled, nurse said pt left AMA.
== END 2019-08-09 08:05 | disposition left against medical advice (07) | DRG 720 ==
LOC: MED 14:29 → MTU 17:53
PROVIDERS: ADMIT General Practice; ATTEND General Practice
DX: A41.9 Sepsis, unspecified organism (principal); D68.59 Other primary thrombophilia; E87.1 Hypo-osmolality and hyponatremia; L03.113 Cellulitis of right upper limb; E11.9 Type 2 diabetes mellitus without complications; E86.1 Hypovolemia; F15.90 Other stimulant use, unspecified, uncomplicated; I16.0 Hypertensive urgency; F17.210 Nicotine dependence, cigarettes, uncomplicated; Z79.84 Long term (current) use of oral hypoglycemic drugs
CPT/HCPCS: 36415; 71045; 80048; 80053; 80305; 81003; 82140; 82150; 82550; 82948; 83036; 83605; 83615; 83690; 83735; 83880; 84100; 84439; 84443; 84484; 85025; 85610; 85730; 86140; 87040; 87081; 87086; 96361; 96365; 96375; 99285; G0482; J0696; J1885; J2270; J2405; J3490; J7030; J7060; Q0092

== ENCOUNTER 2020-09-10 11:13 | Emergency (ER) | payer MEDICAID ==
[~2020-09-10] VITALS: Ht 175.3 cm; Wt 92.5 kg
[~2020-09-10 11:13] MED LIST changes: -DOCU-299 PO; -FIO PO; -GABA300C PO; +GLIP5TER PO; -GLUC-805 FS; -HUMSLIDE SUBQ; -LISI5TAB18 PO; -METPCK PO
[2020-09-10 11:32] VITALS: BP 145/73
[2020-09-10 12:12] LABS: BASOPHILS # (AUTO) 0.1 K/uL (0.00-0.22); BASOPHILS % (AUTO) 1.7 % (0.0-2.0); EOSINOPHILS # (AUTO) 0.2 K/uL (0-0.4); EOSINOPHILS % (AUTO) 4.5 % (0.0-4.0); HEMATOCRIT 39.6 % (36-52); HEMOGLOBIN 13.5 g/dL (12.0-18.0); LYMPHOCYTES # (AUTO) 1.4 K/uL (2.0-11.5); LYMPHOCYTES % (AUTO) 32.1 % (20.5-51.1); MEAN CORPUSCULAR HEMOGLOBIN 30 pg (27-31); MEAN CORPUSCULAR HGB CONC 34 g/dL (33-37); MEAN CORPUSCULAR VOLUME 88.7 fL (80-94); MONOCYTES # (AUTO) 0.4 K/uL (0.8-1.0); MONOCYTES % (AUTO) 8.4 % (1.7-9.3); NEUTROPHILS # (AUTO) 2.4 K/uL (1.8-7.7); NEUTROPHILS % (AUTO) 53.3 % (42.2-75.2); PLATELET COUNT (AUTO) 230 K/uL (140-450); RED BLOOD CELL COUNT(AUTO) 4.47 MIL/uL (4.20-6.10); RED CELL DISTRIBUTION WIDTH 14.3 % (11.6-13.7); WHITE BLOOD COUNT (AUTO) 4.4 K/uL (4.8-10.8)
[2020-09-10 12:24] LABS: PROTHROMBIN TIME 9.9 secs (10.8-13.4)
[2020-09-10 12:26] LABS: ALBUMIN 3.8 g/dL (3.4-5.0); TOTAL BILIRUBIN 0.4 mg/dL (0.0-1.0)
[2020-09-10 12:36] LABS: ANION GAP 10.2 (8-16); CARBON DIOXIDE 25.8 mmol/L (21-32)
[2020-09-10] MEDS ORDERED: NACL 0.9% 1,000 ML IV ONE (12:50)
[2020-09-10 13:15] VITALS: BP 137/75
[2020-09-11] MEDS ORDERED: ASPIRIN 325 MG TABEC PO SCH (09:00)
== END 2020-09-10 13:15 | disposition short-term general hospital (02) ==
LOC: MED 11:13
DX: R53.1 Weakness (principal); I63.9 Cerebral infarction, unspecified; M25.512 Pain in left shoulder; E11.9 Type 2 diabetes mellitus without complications; Z86.73 Personal history of transient ischemic attack (TIA), and cerebral infarction without residual deficits; Z79.84 Long term (current) use of oral hypoglycemic drugs; Z98.890 Other specified postprocedural states
CPT/HCPCS: 36415; 70450; 71045; 80053; 83880; 84484; 85025; 85610; 85730; 93005; 99285